=== PATIENT | female | born 1970 | race Caucasian/White ===

== ENCOUNTER 2017-10-24 12:28 | Emergency (ER) | payer OTHER ==
[~2017-10-24] VITALS: Ht 170.2 cm; Wt 97.5 kg
[2017-10-24] MEDS ORDERED: CIPRO500 MG PO (15:35)
== END 2017-10-24 16:02 | disposition home or self-care (01) ==
LOC: ER 12:28
DX: N39.0 Urinary tract infection, site not specified (principal)

== ENCOUNTER → 2017-10-29 | Emergency (ER) | payer OTHER ==
[~2017-10-29] VITALS: Ht 167.6 cm; Wt 97.5 kg
[~2017-10-29] MED LIST: CEFDINIR300 MG; CIPRO500 MG PO
== END | disposition home or self-care (01) ==
LOC: ER 06:25
DX: N39.0 Urinary tract infection, site not specified (principal)

== ENCOUNTER 2024-10-21 12:30 | Emergency (ER) | payer OTHER ==
[~2024-10-21] VITALS: Ht 167.6 cm; Wt 98.4 kg
[2024-10-21] MEDS ORDERED: ELIQUIS2.5 MG (13:38)
[2024-10-21] MEDS ORDERED: 0.9 % SODIUM CHLORIDE 1,000 ML IV SCH (14:00)
[2024-10-21] MEDS ORDERED: KETOROLAC TROMETHAMINE 30 MG VIAL IV ONE (14:00)
[2024-10-21] MEDS ORDERED: CEFTRIAXONE SODIUM 1,000 MG VIAL IV ONE (14:00)
[2024-10-21] MEDS ORDERED: KETOROLAC TROMETHAMINE 30 MG VIAL ONE (14:13)
[2024-10-21] MEDS ORDERED: CEFTRIAXONE SODIUM 1,000 MG VIAL ONE (14:13)
[2024-10-21] MEDS ORDERED: BARIUM SULFATE 450 ML ORAL.SUSP PO ONE (14:27)
[2024-10-21 15:13] LABS: BASO % 0.3 % (0.1-1.2); EOS % 1.7 % (0.7-7.0); HEMATOCRIT 44.6 % (34.1-44.9); HEMOGLOBIN 14.9 g/dL (11.2-15.7); LYMPH # 1.23 (1.18-3.74); LYMPH % 21.4 % (19.3-53.1); MEAN CORPUSCULAR HEMOGLOBIN 29.7 pg (25.6-32.2); MONO # 0.36 (0.24-0.82); MONO % 6.3 % (4.7-12.5); NEUT % 69.8 % (34.0-71.1); PLATELET COUNT 300 K/uL (163-369); RED BLOOD COUNT 5.02 M/uL (3.93-5.22); RED CELL DISTRIBUTION WIDTH 13.1 % (11.6-14.4)
[2024-10-21 15:39] LABS: POTASSIUM 4.3 mEq/L (3.5-5.1)
[2024-10-21 15:45] LABS: CALCIUM 9.3 mg/dL (8.5-10.1); CREATININE SERUM 0.71 mg/dL (0.55-1.02); GFR 86.44
[2024-10-21 17:35] LABS: URINE APPEARANCE Clear; URINE BILIRRUBIN Negative (NEGATIVE); URINE BLOOD Negative; URINE COLOR Yellow; URINE GLUCOSE Negative (NEGATIVE); URINE KETONE Negative (NEGATIVE); URINE LEUKOCYTE Small; URINE NITRATE Negative; URINE PROTEIN Negative (NEGATIVE); URINE UROBILINOGEN 0.2 E.U./dl
[2024-10-21 17:38] LABS: URINE BACTERIA 68.5 uL (0.0-1933); URINE EPITHELIAL CELLS 10.1 uL (0.0-38.8); URINE WBC 25.2 uL (0.0-23.2)
[2024-10-21 17:40] LABS: URINE RBC 1.4 uL (0.0-20.8)
[2024-10-21] MEDS ORDERED: METRONIDAZOLE500 MG PO (17:52)
[2024-10-21] MEDS ORDERED: CIPRO500 MG PO (17:52)
[2024-10-21] MEDS ORDERED: TAMS0.4C PO (17:52)
[2024-10-21] MEDS ORDERED: PROBIOTIC1 EAC2 PO (17:52)
[2024-10-21] MEDS ORDERED: NORFLEX100MG PO (17:52)
[2024-10-21] MEDS ORDERED: PEPCID AC20 MG PO (17:52)
== END 2024-10-21 18:30 | disposition home or self-care (01) ==
LOC: ER 12:30
PROVIDERS: Emergency Medicine
DX: N39.0 Urinary tract infection, site not specified (principal); R10.9 Unspecified abdominal pain
CPT/HCPCS: 36415; 74177; Q9965

== ENCOUNTER 2024-11-25 12:00 | Inpatient (IN) | payer OTHER ==
[~2024-11-25] VITALS: Ht 167.6 cm; Wt 44.5 kg
[~2024-11-25 12:00] MED LIST changes: +ELIQUIS2.5 MG; +METRONIDAZOLE500 MG PO; +NORFLEX100MG PO; +PEPCID AC20 MG PO; +PROBIOTIC1 EAC2 PO; +TAMS0.4C PO
[2024-11-25] MEDS ORDERED: PROTONIX40 MG PO (14:46)
[2024-12-03] MEDS ORDERED: METRONIDAZOLE/SODIUM CHLORIDE 500 MG/100 ML PIGGYBACK IV ONE (16:00)
[2024-12-03] MEDS ORDERED: CEFTRIAXONE SODIUM 2,000 MG VIAL IV ONE (16:00)
[2024-12-03] MEDS ORDERED: MORPHINE SULFATE 4 MG/ML CARTRIDGE IV PRN (18:15)
[2024-12-03] MEDS ORDERED: OxyCODONE HCL 5 MG TABLET (ROXICODONE) PO PRN (18:15)
[2024-12-03] MEDS ORDERED: RINGERS SOLUTION,LACTATED 1,000 ML IV SCH (18:15)
[2024-12-03] MEDS ORDERED: ONDANSETRON HCL 2 MG/ML VIAL IV PRN (18:15)
[2024-12-03] MEDS ORDERED: SUGAMMADEX SODIUM 200 MG/2 ML VIAL IV ONE (19:00)
[2024-12-03] MEDS ORDERED: MORPHINE SULFATE 4 MG/ML VIAL IV ONE ×2 (19:15→19:45)
[2024-12-03] MEDS ORDERED: ACETAMINOPHEN 500 MG GEL..CAP PO SCH (20:00)
[2024-12-03] MEDS ORDERED: SIMETHICONE 125 MG CAPSULE PO SCH (21:00)
[2024-12-03] MEDS ORDERED: FAMOTIDINE/PF 20 MG/2 ML VIAL IV PUSH SCH (21:00)
[2024-12-03 21:46] VITALS: BP 103/61; O2SAT 95
[2024-12-04] VITALS (7 sets, daily range): BP systolic 107–123; BP diastolic 67–78; O2SAT 90–99
[2024-12-04] MEDS ORDERED: GABAPENTIN 300 MG CAPSULE PO SCH (01:00)
[2024-12-04] MEDS ORDERED: METOCLOPRAMIDE HCL 5 MG/ML VIAL IV SCH (01:00)
[2024-12-04] MEDS ORDERED: CELECOXIB 200 MG CAPSULE PO SCH (05:00)
[2024-12-04 07:17] LABS: BUN CREA RATIO 15.0 (7.0-25.0); CREATININE SERUM 0.61 mg/dL (0.55-1.02); GFR 102.99; GLUCOSE FASTING 118.0 mg/dL (65-100); OSMOLALITY SERUM 281.0 MOSM/KG (275-295)
[2024-12-04] MEDS ORDERED: LACTULOSE 20 G/30 ML BLIST.PACK PO SCH (09:00)
[2024-12-04] MEDS ORDERED: HYOSCYAMINE SULFATE 0.125 MG TAB.SUBL SL SCH (09:00)
[2024-12-04] MEDS ORDERED: LACTOBACILLUS ACIDOPHILUS 1 CAP CAP PO SCH (09:00)
[2024-12-04 12:45] LABS: ABG PH 7.382 (7.35-7.45); ABG PO2 70.9 mmHg (80-100); BICARBONATE 23.5 mmol/l (23-25); o2 25 %
[2024-12-04] MEDS ORDERED: MAGNESIUM SULFATE IN WATER 50 ML IV NR ×2 (13:00→16:00)
[2024-12-04 16:15] LABS: BASO % 0.2 % (0.1-1.2); EOS # 0.12 (0.04-0.54); EOS % 1.4 % (0.7-7.0); LYMPH # 1.06 (1.18-3.74); LYMPH % 12.7 % (19.3-53.1); MEAN PLATELET VOLUME 9.70 fl (9.4-12.4); MONO # 0.70 (0.24-0.82); MONO % 8.4 % (4.7-12.5); NEUT # 6.41 (1.56-6.13); NEUT % 76.9 % (34.0-71.1); RED CELL DISTRIBUTION WIDTH 12.6 % (11.6-14.4)
[2024-12-04] MEDS ORDERED: ENOXAPARIN SODIUM 40 MG/0.4 ML SYRINGE SUBCUTANEO SCH (17:00)
[2024-12-04] MEDS ORDERED: POLYETHYLENE GLYCOL 3350 17 GM BLIST.PACK PO SCH (17:00)
[2024-12-04] MEDS ORDERED: MAGNESIUM CHLORIDE 70 MG TABLET.DR PO STA (18:21)
[2024-12-05 00:19] VITALS: BP 111/69; O2SAT 94
[2024-12-05 00:40] VITALS: O2SAT 98
[2024-12-05 05:20] VITALS: O2SAT 97
[2024-12-05 06:50] LABS: BASO % 0.3 % (0.1-1.2); EOS # 0.23 (0.04-0.54); EOS % 3.8 % (0.7-7.0); LYMPH # 0.80 (1.18-3.74); LYMPH % 13.1 % (19.3-53.1); MEAN PLATELET VOLUME 9.30 fl (9.4-12.4); MONO # 0.56 (0.24-0.82); MONO % 9.2 % (4.7-12.5); NEUT # 4.46 (1.56-6.13); NEUT % 73.1 % (34.0-71.1); RED CELL DISTRIBUTION WIDTH 12.8 % (11.6-14.4)
[2024-12-05 07:33] LABS: BUN CREA RATIO 16.0 (7.0-25.0); CREATININE SERUM 0.64 mg/dL (0.55-1.02); GFR 97.44; GLUCOSE FASTING 91.0 mg/dL (65-100); OSMOLALITY SERUM 284.0 MOSM/KG (275-295)
[2024-12-05 08:23] VITALS: BP 135/88; O2SAT 97
[2024-12-05] MEDS ORDERED: MAGNESIUM CHLORIDE 70 MG TABLET.DR PO SCH (09:00)
[2024-12-05] MEDS ORDERED: ENOXAPARIN SODIUM 40 MG/0.4 ML SYRINGE SUBCUTANEO SCH (09:00)
[2024-12-05 09:12] VITALS: O2SAT 97
[2024-12-05] MEDS ORDERED: MAGNESIUM SULFATE IN WATER 50 ML IV NR (10:15)
[2024-12-05 14:07] VITALS: O2SAT 98
[2024-12-05] MEDS ORDERED: METOCLOPRAMIDE HCL 10 MG TABLET PO SCH (17:00)
== END 2024-12-05 18:00 | disposition home or self-care (01) | DRG 330 ==
LOC: SURH 12-03 07:00 → SURG 12-03 11:24 → O/R 12-03 11:24 → SURH 12-03 12:45 → SURG 12-03 19:36 → MEDI 12-05 14:20 → SURG 12-05 14:57
PROVIDERS: Internal Medicine Geriatric Medicine; ADMIT Colon & Rectal Surgery; ATTEND Colon & Rectal Surgery
PROC: 0DBP4ZZ Excision of Rectum, Percutaneous Endoscopic Approach (ICD-10-PCS; 2024-12-03)
PROC: 8E0W4CZ Robotic Assisted Procedure of Trunk Region, Percutaneous Endoscopic Approach (ICD-10-PCS; 2024-12-03)
PROC: 0DTN4ZZ Resection of Sigmoid Colon, Percutaneous Endoscopic Approach (ICD-10-PCS; principal; 2024-12-03 07:00)
DX: K57.20 Diverticulitis of large intestine with perforation and abscess without bleeding (principal); K92.1 Melena
CPT/HCPCS: 44207; 44213; S2900